=== PATIENT | male | born 1995 | race Caucasian/White ===

== ENCOUNTER 2019-07-14 05:49 | Emergency (ER) | payer OTHER, SELFPAY ==
[2019-07-14 05:57] VITALS: BP 128/60; PULSE 57; RESP 15; TEMP 36.6; O2SAT 100; BMI 24.4
--- NOTE | 2019-07-14 06:02 | ED.DIZZY ---
HPI - Dizziness General Chief Complaint: Dizziness Stated Complaint: dizzy and disoriented since wednesday Time Seen by Provider: 07/14/19 05:52 Source: patient and family Mode of arrival: Ambulatory Limitations: no limitations History of Present Illness HPI Narrative: 24-year-old male nonsmoker with no significant medical history presents with his significant other and a chief complaint of severe dizziness for the past few days. He states that started abruptly upon standing up a few days ago and now is quite severe when he turns his head to the right. He feels as if the room is spinning and comes quite nauseated. He states the symptoms last about 1 minutes before resolving. He denies any injury nor history of the same. He denies any focal neurologic findings. He denies any recent illness with runny nose, sore throat or cough. MD complaint: dizziness Onset (ago): day(s) Timing: sudden onset Description: sense of movement and room spinning History of similar episodes: No History of trauma: No Severity: moderate Relieving factors: rest Exacerbating factors: movement and position Associated symptoms: nausea Related Data Previous Rx's Medication Instructions Recorded meclizine 25 mg PO TID PRN #20 tab 07/14/19 ondansetron 4 mg PO TID-QID PRN #10 tab 07/14/19 Allergies Allergy/AdvReac Type Severity Reaction Status Date / Time No Known Drug Allergies Allergy Verified 07/14/19 05:57 Review of Systems Constitutional Constitutional: Denies chills, Denies fatigue, Denies fever(s), Denies frequent falls, Denies lethargy and Denies weakness Eyes Eyes: Denies change in vision, Denies eye discharge, Denies irritation and Denies loss of vision ENT Ears, Nose, Mouth, and Throat: Denies change in voice, Reports vertigo, Reports dizziness, Denies neck pain, Denies sore throat and Denies throat swelling Cardiovascular Cardiovascular: Denies chest pain, Denies irregular heart rhythm, Denies lightheadedness, Denies palpitations, Denies dyspnea, Denies dyspnea on exertion and Denies orthopnea Respiratory Respiratory: Denies cough, Denies dyspnea, Denies dyspnea on exertion and Denies wheezing Gastrointestinal Gastrointestinal: Denies abdominal pain, Denies change in bowel habits, Denies diarrhea, Reports nausea and Denies vomiting Genitourinary Genitourinary: Denies hematuria, Denies flank pain, Denies urinary incontinence and Denies urinary urgency Musculoskeletal Musculoskeletal: Denies back pain, Denies muscle weakness, Denies neck pain, Denies numbness and Denies tingling Integumentary/Breasts Skin/Breast: Denies pruritus, Denies erythema, Denies rash and Denies wounds Neurologic Neurologic: Denies behavioral changes, Denies confusion, Reports vertigo, Reports dizziness, Denies frequent falls, Denies loss of vision, Denies numbness, Denies tingling and Denies weakness Psychiatric Psychiatric: Denies anxiety, Denies behavioral changes, Denies confusion, Denies depression, Denies homicidal ideation and Denies suicidal ideation Endocrine Endocrine: Denies fatigue, Denies flushing and Denies palpitations Hematologic/Lymphatic Hematologic/Lymphatic: Denies easy bruising Allergic/Immunologic Allergic/Immunologic: Denies urticaria, Denies throat swelling and Denies wheezing Patient History Social History Smoking Status: Never smoker Exam Narrative Exam Narrative: GENERAL: [24] year old patient appears stated age. Well-nourished, well-developed patient, in mild distress. HEAD: Atraumatic. Normocephalic. EYES: Pupils equal round and reactive. Extraocular motions intact. No scleral icterus. No injection or drainage. ENT: Nose without bleeding, purulent drainage. Throat without erythema, tonsillar hypertrophy or exudate. Airway patent. NECK: Trachea midline. Non tender CARDIOVASCULAR: Regular rate and rhythm without murmurs, gallops, or rubs. RESPIRATORY: Clear to auscultation. Breath sounds equal bilaterally. No wheezes, rales, or rhonchi. GASTROINTESTINAL: Abdomen soft, non-tender, nondistended. EXTREMITIES: No edema or joint tenderness. BACK: Nontender without deformity or crepitance. No flank tenderness. NEURO: AOx3. SKIN: No rash or erythema of visible areas Initial Vital Signs Initial Vital Signs: Vital Signs Temperature 97.8 F 07/14/19 05:57 Pulse Rate 57 L 07/14/19 05:57 Respiratory Rate 15 07/14/19 05:57 Blood Pressure 128/60 07/14/19 05:57 Pulse Oximetry 100 07/14/19 05:57 Course Course Course Narrative: Patient develops noted vertigo when turning his head to the right. Fast which is to the right. The symptoms last approximately 1 minute before resolving, are reproducible and fatigable. Kirk maneuver performed twice with little to no improvement. Patient given meclizine with mild improvement. He is given return precautions and has had his questions answered to his apparent satisfaction. Orders Ordered: Discontinued Medications Meclizine HCl (Antivert) 50 mg PO NOW ONE Stop: 07/14/19 06:03 Last Admin: 07/14/19 06:04 Dose: 50 mg Documented by: SARA Vital Signs Vital signs: Vital Signs - 8 hr 07/14/19 05:57 07/14/19 06:38 Temperature 97.8 F Pulse Rate 57 L 68 Respiratory Rate 15 18 Blood Pressure 128/60 126/58 L Pulse Oximetry 100 99 Discharge Plan Departure Patient Disposition: Home Clinical Impression: Benign paroxysmal positional vertigo Qualifiers: Laterality: right Qualified Code(s): H81.11 - Benign paroxysmal vertigo, right ear Discharge Date/Time: 07/14/19 06:38 Instructions: DI for Vertigo Activity Restrictions/Additional Instructions: *You have been diagnosed with [ Benign Paroxysmal Positional Vertigo] *What to do: *Take medications as directed *Follow up with your primary care provider in 2-3 days, call for an appointment. Let them know you were seen in the Emergency Department and that we ask that you be seen in follow up *Return to ER if you should have any new, worsening or concerning symptoms Prescriptions: New meclizine 25 mg tablet 25 mg PO TID PRN (Reason: dizziness) Qty: 20 RF: 0 ondansetron 4 mg tablet,disintegrating 4 mg PO TID-QID PRN (Reason: nausea and vomiting) Qty: 10 RF: 0 Referrals: [facility] [Outside]
[2019-07-14] MEDS: MECLIZINE HCL 12.5 MG TABLET 50 MG PO (06:04)
[2019-07-14 06:38] VITALS: BP 126/58; PULSE 68; RESP 18; O2SAT 99
== END 2019-07-14 06:38 | disposition home or self-care (01) ==
PROVIDERS: Emergency Provider Emergency Medicine
DX: H81.11 Benign paroxysmal vertigo, right ear (principal)
CPT/HCPCS: 99283

== ENCOUNTER 2021-01-30 10:12 | Emergency (ER) | payer OTHER, SELFPAY ==
[2021-01-30 10:20] VITALS: BP 118/71; PULSE 60; RESP 14; TEMP 36.9; O2SAT 98
[2021-01-30] MEDS: LIDOCAINE 2% INJ MDV 1 ML SUBCUT (12:51)
[2021-01-30 12:54] VITALS: BP 114/68; PULSE 58; RESP 17; O2SAT 100
[2021-01-30] MEDS: BACITRACIN OINT 0.9 GM PCKT 1 APPLIC TOP (12:54)
--- NOTE | 2021-01-30 13:30 | PC.NURSE ---
Bacitracin and gauze applied. Went over S/S of infection and when to seek medical attention
--- NOTE | 2021-01-30 17:13 | ED_ITS ---
HPI - Wound/Laceration General Chief Complaint: Wound/Laceration Stated Complaint: Forehead Injury/Gash Time Seen by Provider: 01/30/21 11:02 Source: patient Mode of arrival: Ambulatory Limitations: no limitations Related Data Previous Rx's Medication Instructions Recorded meclizine 25 mg tablet 25 mg PO TID PRN #20 tab 07/14/19 ondansetron 4 mg disintegrating 4 mg PO TID-QID PRN #10 tab 07/14/19 tablet cephalexin 500 mg capsule 1,000 mg PO BID 5 Days #20 cap 01/30/21 Allergies Allergy/AdvReac Type Severity Reaction Status Date / Time No Known Drug Allergies Allergy Verified 01/30/21 10:25 Patient History Social History Smoking Status: Never smoker Smoking Status: Never smoker alcohol intake frequency: holidays/special occasions only Substance Use Type: does not use Exam Initial Vital Signs Initial Vital Signs: Vital Signs Temperature 98.5 F 01/30/21 10:20 Pulse Rate 60 01/30/21 10:20 Respiratory Rate 14 01/30/21 10:20 Blood Pressure 118/71 01/30/21 10:20 Pulse Oximetry 98 01/30/21 10:20 Course Orders Ordered: Discontinued Medications Bacitracin (Bacitracin Oint 0.9 Gm Pckt) 1 applic TOP NOW ONE Stop: 01/30/21 12:53 Last Admin: 01/30/21 12:54 Dose: 1 applic Documented by: JEAN Lidocaine HCl (Lidocaine 2% Inj Mdv) 1 ml SUBCUT NOW ONE Stop: 01/30/21 12:47 Last Admin: 01/30/21 12:51 Dose: 1 ml Documented by: JEAN Vital Signs Vital signs: Vital Signs - 8 hr 01/30/21 10:20 01/30/21 12:54 Temperature 98.5 F Pulse Rate 60 58 L Respiratory Rate 14 17 Blood Pressure 118/71 114/68 Pulse Oximetry 98 100 Discharge Plan Departure Patient Disposition: Home Clinical Impression: Laceration of face Qualifiers: Encounter type: initial encounter Qualified Code(s): S01.81XA - Laceration without foreign body of other part of head, initial encounter Instructions: DI for Laceration Repair Activity Restrictions/Additional Instructions: *You have been diagnosed with [facial laceration] *What to do: [X ] New medication prescriptions sent to your pharmacy: [[facility] ] [ ] New medication written as a paper prescription [ ] No new medications given * please follow-up at your primary care office, clinic, urgent care, or ER for suture removal in 5-7 days. You have a 8 NONABSORBABLE sutures that will need to be removed. Please take antibiotics as directed for the next 5 days. * Please follow-up with your primary care provider in 2-3 days, call for an appointment. Let them know you were seen in the emergency department and that we ask you to be seen in follow-up. * if you do not have a primary care provider, please contact the [facility] Resource line at [phone]. They will ask some questions about your medical history and help to get up with a doctor in the community. * Return to the if you should have any new, worsening, or concerning symptoms, such as [redness, warmth, swelling, pain] Prescriptions: New cephalexin 500 mg capsule 1,000 mg PO BID 5 Days Qty: 20 RF: 0 No Action meclizine 25 mg tablet 25 mg PO TID PRN (Reason: dizziness) Qty: 20 RF: 0 ondansetron 4 mg tablet,disintegrating 4 mg PO TID-QID PRN (Reason: nausea and vomiting) Qty: 10 RF: 0
== END 2021-01-30 13:34 | disposition home or self-care (01) ==
PROVIDERS: Emergency Provider Physician Assistant
DX: S01.81XA Laceration without foreign body of other part of head, initial encounter (principal)
CPT/HCPCS: 12013; 99283